=== PATIENT | female | born 1990 | race Hispanic/Latino ===

== ENCOUNTER 2022-07-16 13:48 | Emergency (ER) | payer BC, OTHER ==
[~2022-07-16] VITALS: Ht 157.5 cm; Wt 78.0 kg
[2022-07-16 14:20] LABS: BASOPHILS # (AUTO) 0.1 (0.0-0.1); BASOPHILS % 0.6 % (0.0-1.0); EOSINOPHILS # (AUTO) 0.3 (0.0-0.4); EOSINOPHILS % 2.1 % (0.0-6.0); HEMATOCRIT 37.3 % (34.2-44.1); HEMOGLOBIN 12.4 g/dL (12.0-16.0); LYMPHOCYTES # (AUTO) 3.8 (1.0-3.2); LYMPHOCYTES % 29.9 % (18.0-39.1); MEAN CORPUSCULAR HEMOGLOBIN 28.2 pg (28-32); MEAN CORPUSCULAR HGB CONC 33.2 g/dL (31-35); MEAN CORPUSCULAR VOLUME 84.8 fL (81-99); MONOCYTES # (AUTO) 0.9 (0.2-0.8); MONOCYTES % 7.3 % (4.4-11.3); NEUTROPHILS # (AUTO) 7.5 (2.1-6.9); NEUTROPHILS % 59.5 % (38.7-80.0); PLATELET COUNT 322 x10e3/uL (140-360); RED CELL DISTRIBUTION WIDTH 13.2 % (11.7-14.4)
[2022-07-16 14:45] LABS: ALBUMIN 3.8 g/dL (3.5-5.0); ALBUMIN/GLOBULIN RATIO 1.2 (0.8-2.0); ANION GAP 14.6 mmol/L (8-16); CALCIUM 8.9 mg/dL (8.4-10.2); CREATININE, SERUM 0.72 mg/dL (0.57-1.11); POTASSIUM 3.6 mmol/L (3.5-5.1)
[2022-07-16 15:04] LABS: CLARITY,URINE CLOUDY (CLEAR); COLOR,URINE YELLOW (YELLOW); KETONES,URINE NEGATIVE (NEGATIVE); LEUKOCYTE ESTERASE ,URINE NEGATIVE (NEGATIVE); NITRITE,URINE NEGATIVE (NEGATIVE); PROTEIN,URINE DIPSTICK TRACE (NEGATIVE); URINE UROBILINOGEN 0.2 mg/dL (0.2 - 1)
[2022-07-16 15:12] LABS: BACTERIA,URINE FEW /HPF; EPITHELIAL CELLS,URINE MODERATE /LPF; RBC,URINE 0-5 /HPF (0-5); WBC,URINE (MAN) 0-5 /HPF (0-5)
== END 2022-07-16 16:29 | disposition home or self-care (01) ==
LOC: ER 13:54
DX: O20.9 Hemorrhage in early pregnancy, unspecified (principal)
CPT/HCPCS: 36415; 76801; 76817; 80053; 81001; 84702; 85025; 86900; 99284